=== PATIENT | female | born 1965 ===

== ENCOUNTER 2017-06-09 15:21 | Emergency (ER) | payer OTHER ==
[2017-06-09 15:41] VITALS: BMI 29.8
[2017-06-09 15:45] VITALS: TEMP 98.1
--- NOTE | 2017-06-09 17:59 | C.PDOC ---
History Of Present Illness 51 year old female presents to the ED for evaluation of a laceration which she sustained to her left index finger around 1 hour RESIDENT INTERN. Patient states she was trying to cut something with scissors, when the scissors slipped and injured her finger. Patient denies any other injuries, extremity numbness/weakness or active bleeding at this time. Time Seen by Provider: 06/09/17 17:16 Chief Complaint (Nursing): Abnormal Skin Integrity History Per: Patient History/Exam Limitations: no limitations Onset/Duration Of Symptoms: Hrs Current Symptoms Are (Timing): Still Present Location Of Injury: Left: Hand (index finger) Additional History Per: Patient Past Medical History Reviewed: Historical Data, Nursing Documentation, Vital Signs Vital Signs: Last Vital Signs Temp 98.1 F 06/09/17 15:41 Pulse 82 06/09/17 18:05 Resp 18 06/09/17 18:05 BP 146/83 06/09/17 18:05 Pulse Ox 99 06/09/17 20:07 - Medical History PMH: HTN Denies: Diabetes, Hepatitis, HIV, Seizures, Sexually Transmitted Disease Surgical History: No Surg Hx - [facility] Procedures OTHER SKIN & SUBQ I D (06/05/13) PSYCHIA INTERV/EVAL NEC (01/07/13) Family History: States: Unknown Family Hx - Social History Hx Tobacco Use: No Hx Alcohol Use: No Hx Substance Use: No - Immunization History Hx Tetanus Toxoid Vaccination: No Hx Influenza Vaccination: Yes Hx Pneumococcal Vaccination: No Review Of Systems Skin: Positive for: Other (laceration to left index finger. no active bleeding ) Neurological: Negative for: Weakness, Numbness Physical Exam - Physical Exam Appears: Non-toxic, No Acute Distress Skin: Normal Color, Warm, Dry, Other (1cm laceration to lateral proximal second finger. no active bleeding ) Head: Atraumatic, Normacephalic Eye(s): bilateral: Normal Inspection Oral Mucosa: Moist Extremity: Normal ROM, Capillary Refill (less than 2 seconds ), No Swelling Neurological/Psych: Oriented x3, Normal Speech, Normal Cognition, Normal Motor, Normal Sensation Gait: Steady ED Course And Treatment O2 Sat by Pulse Oximetry: 99 (on RA) Pulse Ox Interpretation: Normal Laceration - Laceration Repair left second digit Wound Length (In cm): 1 Description Of Wound: Linear Wound Examination: Irrigated With Saline, No FB With Wound Exploration, No Tendon Injury With Wound Exploration Wound Closure: Steri Strips, Skin Glue Wound Complexity: Simple Medical Decision Making Medical Decision Makin cm linear laceration to the left second finger. Wound irrigated with NS and explored. No FB seen. No tendon injury. Steri strips and skin adhesive applied to affected area. Finger splint applied by me. Tetanus IM administered. Pt tolerated well with minimal bleeding. Disposition - Disposition Referrals: Aline Stanley MD [Staff Provider] - Disposition: HOME/ ROUTINE Disposition Time: 17:58 Condition: GOOD Additional Instructions: KEEP THE FINGER CLEAN AND DRY. REMOVE BANDAGE IN 1 WEEK Instructions: Finger Laceration (ED), Skin Adhesive Care (ED) Forms: [employer]ite (Thai) - Clinical Impression Clinical Impression: Laceration of finger - PA / [employer] WORKER / Resident Statement MD/DO has reviewed & agrees with the documentation as recorded. - Scribe Statement The provider has reviewed the documentation as recorded by the Scribe All medical record entries made by the Scribe were at my direction and personally dictated by me. I have reviewed the chart and agree that the record accurately reflects my personal performance of the history, physical exam, medical decision making, and the department course for this patient. I have also personally directed, reviewed, and agree with the discharge instructions and disposition.
[2017-06-09 18:15] VITALS: BP 146/83; PULSE 82; RESP 18
[2017-06-09 20:02] VITALS: O2SAT 99
== END 2017-06-09 18:05 | disposition home or self-care (01) ==
LOC: C.ER 15:21
DX: S61.211A Laceration without foreign body of left index finger without damage to nail, initial encounter (principal); W27.2XXA Contact with scissors, initial encounter; Y92.89 Other specified places as the place of occurrence of the external cause; Z23 Encounter for immunization

== ENCOUNTER 2017-07-31 09:59 | Emergency (ER) | payer OTHER ==
[2017-07-31 10:08] VITALS: BP 137/93; PULSE 91; RESP 16; TEMP 97.7; O2SAT 99; BMI 30.7
--- NOTE | 2017-07-31 10:52 | C.PDOC ---
History Of Present Illness 51 y/o female presents to the ER complaining of left hand pain which began after she tripped and fell forward on her outstretched left hand. Patient reports that she also has pain in the left wrist and an abrasion to the left cheek. Patient does not have any other complaints. - HPI Time Seen by Provider: 07/31/17 10:06 Chief Complaint (Nursing): Trauma History Per: Patient History/Exam Limitations: no limitations Onset/Duration Of Symptoms: Hrs Severity: Moderate Past Medical History Reviewed: Historical Data, Nursing Documentation, Vital Signs Vital Signs: Last Vital Signs Temp 97.7 F 07/31/17 10:05 Pulse 91 H 07/31/17 10:05 Resp 16 07/31/17 10:05 BP 137/93 H 07/31/17 10:05 Pulse Ox 99 07/31/17 12:59 - Medical History PMH: HTN Denies: Diabetes, Hepatitis, HIV, Seizures, Sexually Transmitted Disease Surgical History: No Surg Hx - [facility] Procedures OTHER SKIN & SUBQ I D (06/05/13) PSYCHIA INTERV/EVAL NEC (01/07/13) Family History: States: No Known Family Hx - Social History Hx Tobacco Use: No Hx Alcohol Use: No Hx Substance Use: No - Immunization History Hx Tetanus Toxoid Vaccination: No Hx Influenza Vaccination: Yes Hx Pneumococcal Vaccination: No Review Of Systems Except As Marked, All Systems Reviewed And Found Negative. Musculoskeletal: Positive for: Hand Pain (left hand pain), Other (abrasion to left cheek) Neurological: Negative for: Weakness, Numbness Physical Exam - Physical Exam Appears: Non-toxic, No Acute Distress Skin: Normal Color, Warm Head: Atraumatic, Normacephalic, Abrasion ( 4x 4 cm abrasion to left cheek) Eye(s): bilateral: Normal Inspection Nose: Normal Oral Mucosa: Moist Neck: Supple Chest: Symmetrical Cardiovascular: Rhythm Regular Respiratory: Normal Breath Sounds, No Accessory Muscle Use, No Rales, No Rhonchi , No Wheezing Extremity: Normal ROM Neurological/Psych: Oriented x3, Normal Speech, Normal Motor, Normal Sensation ED Course And Treatment O2 Sat by Pulse Oximetry: 99 (RA) Pulse Ox Interpretation: Normal - Other Rad L wrist X-Ray: Interpreted by Me (neg) - CT Scan/US max/face Other Rad Studies (CT/US): Interpreted By Me (No L cheek fx) Progress Note: motrin/ice packs Reevaluation Time: 10:50 Reassessment Condition: Improved Medical Decision Making Medical Decision Making: Steve SAPP facial/max contusion without fx L wrist minor sprain- x-ray neg. Disposition Doctor Will See Patient In The: Office Counseled Patient/Family Regarding: Studies Performed, Diagnosis - Disposition Referrals: Aline Stanley MD [Staff Provider] - Disposition: HOME/ ROUTINE Disposition Time: 10:51 Condition: GOOD Additional Instructions: ice packs 1/2 hour per hour, nothing hot. NSAIDS as prescribed by your PMD CT of Face NEGATIVE for cheek fracture L wrist- NEGATIVE Instructions: Wrist Sprain (ED), Facial Contusion (ED) Forms: [employer] (Moldovan) - Clinical Impression Clinical Impression: Facial contusion, Left wrist sprain - Scribe Statement The provider has reviewed the documentation as recorded by the Springibtanisha Duncan Provider Attestation: All medical record entries made by the Springibe were at my direction and personally dictated by me. I have reviewed the chart and agree that the record accurately reflects my personal performance of the history, physical exam, medical decision making, and the department course for this patient. I have also personally directed, reviewed, and agree with the discharge instructions and disposition.
--- NOTE | 2017-07-31 11:04 | CT ---
CT maxillofacial bones without IV contrast Indication: Left cheek trauma Comparison: None available. Technique: Axial computed tomography images were obtained of the maxillofacial bones without the use of intravenous contrast. Coronal and sagittal reformatted images were generated and reviewed. This CT exam was performed using 1 or more of the following dose reduction techniques: Automated exposure control, adjustment of the MAA and/or kV according to patient size, and/or use of iterative reconstruction technique. Radiation dose: Total exam DLP = 842.90 MGy-cm. Findings: Streak artifact from dental hardware. Mild swelling, left facial soft tissues. Left preseptal soft tissue swelling. Facial bones appear intact without acute displaced fracture. No discrete focal fluid collection or abscess identified. The temporomandibular joints are located. The orbits appear unremarkable. The mastoid air cells appear clear. Mucosal thickening of the right paranasal sinus. The paranasal sinuses appear otherwise clear without air-fluid levels. Visualized portions of the brain appear grossly unremarkable. Impression: Mild swelling, left facial soft tissues. Left preseptal soft tissue swelling. No acute fractures identified.
--- NOTE | 2017-07-31 14:39 | RAD ---
PROCEDURE: Left Wrist Radiographs. HISTORY: FOOSH COMPARISON: None. FINDINGS: BONES: No fracture appreciated. JOINTS: Normal. No dislocation. SOFT TISSUES: Swelling OTHER FINDINGS: None. IMPRESSION: No radiographic fracture appreciated. Soft tissue swelling present dorsal wrist level and volar thenar eminence
== END 2017-07-31 11:04 | disposition home or self-care (01) ==
LOC: C.ER 09:59
DX: S63.502A Unspecified sprain of left wrist, initial encounter (principal); S00.83XA Contusion of other part of head, initial encounter; W01.0XXA Fall on same level from slipping, tripping and stumbling without subsequent striking against object, initial encounter

== ENCOUNTER 2017-08-07 09:18 | Day surgery (SDC) | payer OTHER ==
--- NOTE | 2017-08-07 10:48 | CP.SDSHP ---
Same Day Surgery H & P - History Proposed Procedure: US guided FNA of right thyroid nodule Pre-Op Diagnosis: right thyroid nodule - Allergies Allergies: Allergies Penicillins Allergy (Intermediate, Verified 06/09/17 15:40) RASH - Impression Impression: Pt with a 1.3 cm rigth thyroid nodule. This was erroneously reported at 3.4 cm on previous US. Plan US guided FNA. Pt. Evaluated Today:Candidate for Anesthesia & Procedure: No - Date & Time Date: 08/07/17 Time: 10:00 Short Stay Discharge - Short Stay Discharge Admitting Diagnosis/Reason for Visit: BIOPSY
--- NOTE | 2017-08-07 10:49 | PCM.SURG1 ---
Surgeon's Initial Post Op Note - Surgeon's Notes Surgeon: Sam Garcia MD Delivery Specialist: NONE Type of Anesthesia: Local Pre-Operative Diagnosis: 1.3 cm right thyroid nodule Operative Findings: US shows a 1.3 cm hypoechoic right thyroid nodule. This was reported as 3.4 cm on previous US. Post-Operative Diagnosis: 1.3 cm right thyroid nodule Operation Performed: US guided FNA of right thyroid nodule Specimen/Specimens Removed: 25 g FNA x 5 passes Estimated Blood Loss: EBL {In ML}: 1 Blood Products Given: N/A Drains Used: No Drains Post-Op Condition: Good Date of Surgery/Procedure: 08/07/17 Time of Surgery/Procedure: 10:45
[2017-08-07 10:50] VITALS: BMI 24.9
--- NOTE | 2017-08-08 12:22 | US ---
PROCEDURE: Date of Procedure: 08/07/2017 PROCEDURE: 1. Ultrasound guided FNA of right thyroid nodule, CPT 82403 2. Ultrasound guidance for FNA, 94106 Medications: 3cc 1% Lidocaine HISTORY: Enlarged right thyroid nodule. TECHNIQUE: Following informed consent and procedure time-out, a limited ultrasound patient's neck confirmed the presence of a 1.1 cm complex right thyroid nodule which is predominantly solid. This nodule was measured over 3 centimeters on the previous report. The was a erroneous measurement. After the patient's neck was prepped and draped in the usual sterile fashion, the skin was anesthetized with 1% lidocaine. Ultrasound-guided fine needle aspiration was then performed of the dominant right thyroid nodule. A total of 4 passes were made into the nodule with 25 gauge needle under ultrasound guidance. The FNA specimen was sent for routine pathology. Post biopsy ultrasound showed no hematoma. IMPRESSION: Ultrasound-guided FNA of the dominant right thyroid nodule. The nodule measures 1.1 centimeter. In the previous report, the nodule was incorrectly reported over 3 centimeters.
== END 2017-08-07 11:45 | disposition home or self-care (01) ==
LOC: C.CATHLAB 09:18
PROVIDERS: ATTEND Radiology Vascular & Interventional Radiology
DX: E04.1 Nontoxic single thyroid nodule (principal)

== ENCOUNTER 2018-07-20 11:40 | Outpatient (CLI) | payer OTHER | END 2018-07-20 11:41 | disposition home or self-care (01) | LOC: C.MAMMO 11:40 | DX: Z12.31 Encounter for screening mammogram for malignant neoplasm of breast (principal) ==